=== PATIENT | female | born 1945 | race Caucasian/White ===

== ENCOUNTER 2018-01-29 11:36 | Outpatient (REF) | payer OTHER, SELFPAY ==
[2018-01-29 19:53] LABS: ALT 19 U/L (12-78); Cholesterol 187 mg/dL (50-200); Glucose 80 mg/dL (70-100); HDL Cholesterol 68 mg/dL (40-60); LDL CHOLESTEROL 102 mg/dL (<100); Triglyceride 122 mg/dL (30-150)
== END 2018-01-29 11:56 ==
LOC: NCHCN 11:36
PROVIDERS: PCP Family Medicine; Visit Provider Family Medicine
DX: E78.5 Hyperlipidemia, unspecified (principal)
CPT/HCPCS: 80061; 82947; 83721; 84460

== ENCOUNTER 2018-09-26 00:48 | Outpatient (CLI) | payer OTHER, SELFPAY ==
--- NOTE | 2018-09-26 08:36 | DI.MRI_ITS ---
SYMPTOM/DIAGNOSIS: SUPRACLAVICULAR LYMPHADENOPATHY, R59.0, SPEECH ARTICULATION, F80.0, TIA, G45.9 MRA [place]: The distal internal carotid arteries are unremarkable. No evidence of occlusion, aneurysm or significant stenosis. The anterior cerebral arteries are unremarkable without evidence of occlusion, aneurysm or significant stenosis. The middle cerebral arteries are unremarkable without evidence of occlusion, aneurysm or significant stenosis. The basilar artery is unremarkable without evidence of occlusion, aneurysm or significant stenosis. The posterior cerebral arteries are unremarkable without evidence of occlusion, aneurysm or significant stenosis. IMPRESSION: Negative MRA of the [place]. MRA OF THE NECK: Routine noncontrast examination was performed. This study is limited due to significant patient motion artifact. The common carotid arteries are unremarkable without evidence of occlusion or significant stenosis. The external carotid arteries are unremarkable without evidence of occlusion or significant stenosis. The internal carotid arteries are unremarkable without evidence of occlusion, aneurysm or significant stenosis. The left vertebral artery is dominant. No evidence of aneurysm, occlusion or significant stenosis. The right vertebral artery shows no definite evidence of aneurysm or significant stenosis. IMPRESSION: 1. Limited examination due to patient motion artifact. 2. No definite significant stenosis or occlusion is identified.
== END 2018-09-26 01:08 ==
PROVIDERS: PCP Family Medicine; Visit Provider Family Medicine
DX: R59.0 Localized enlarged lymph nodes (principal); F80.0 Phonological disorder; G45.9 Transient cerebral ischemic attack, unspecified
CPT/HCPCS: 70544; 70547

== ENCOUNTER 2018-10-07 01:09 | Outpatient (CLI) | payer OTHER, SELFPAY ==
[2018-10-07 11:07] LABS: CREATININE 0.64 mg/dL (0.55-1.02)
[2018-10-07] MEDS: Normal Saline Flush 10 ML SYR IVP (11:13)
[2018-10-07] MEDS: Gadoterate meglumine 20 ML VIAL 11 ML IVP (11:14)
--- NOTE | 2018-10-07 11:34 | DI.MRI_ITS ---
SYMPTOM/DIAGNOSIS: SUPRAVASCULAR LYMPHADENOPATHY R59.0. SPEECH ARTICULATION DISORDER F80.0 PRE AND POST CONTRAST MRI OF BRAIN: Routine examination was performed. No priors for comparison. There is prominence of the ventricles and sulci consistent with global cerebral atrophy. There are multiple foci of hyperintense signal in the white matter on the T2 and FLAIR images suggesting small vessel ischemic disease. The diffusion weighted images show no evidence of restricted diffusion. The susceptibility images show multiple round areas of decreased signal predominantly in the subcortical white matter location. Several of these areas correspond to areas of hypointense signal on the T2 weighted images. No intracranial mass, midline shift or mass effect is identified. The ventricles are intact. The basilar cisterns are patent. There is an enlarged empty sella present. Following contrast administration no enhancing lesions are identified. The visualized paranasal sinuses are clear. The orbits and retro-orbital soft tissues are unremarkable. IMPRESSION: 1. Multiple foci of decreased signal on the susceptibility images. Primary diagnostic concern is for cerebral amyloid disease. Trauma and metastases are considered less likely. 2. No evidence of an acute infarct or intracranial mass 3. Cerebral atrophy and small vessel ischemic disease.
== END 2018-10-07 01:29 ==
PROVIDERS: PCP Family Medicine; Visit Provider Family Medicine
DX: R59.0 Localized enlarged lymph nodes (principal); F80.0 Phonological disorder; G93.89 Other specified disorders of brain
CPT/HCPCS: 70553; 82565

== ENCOUNTER 2018-10-21 07:03 | Outpatient (CLI) | payer OTHER, SELFPAY ==
[2018-10-23 15:47] LABS: Vitamin K1 0.37 ng/mL (0.10-2.20)
== END 2018-10-21 07:23 ==
PROVIDERS: PCP Family Medicine; Visit Provider Family Medicine
DX: I68.0 Cerebral amyloid angiopathy (principal)
CPT/HCPCS: 36415; 84597

== ENCOUNTER → 2018-10-29 13:25 | Outpatient (BNVA) | payer OTHER, SELFPAY | PROVIDERS: PCP Family Medicine; Referring Provider Family Medicine; Visit Provider Psychiatry & Neurology Neurology | DX: G62.9 Polyneuropathy, unspecified (principal); G43.109 Migraine with aura, not intractable, without status migrainosus; E85.4 Organ-limited amyloidosis; I68.0 Cerebral amyloid angiopathy | CPT/HCPCS: 99205 ==

== ENCOUNTER 2018-12-30 14:42 | Outpatient (CLI) | payer OTHER, SELFPAY ==
[2018-12-30 16:23] LABS: TSH (W/Ref FT4) 0.64 uIU/mL (0.36-3.74); Vitamin B12 733 pg/mL (193-986)
== END 2018-12-30 15:02 ==
PROVIDERS: PCP Family Medicine; Visit Provider Family Medicine
DX: G62.9 Polyneuropathy, unspecified (principal); R63.4 Abnormal weight loss
CPT/HCPCS: 36415; 82607; 84443

== ENCOUNTER → 2021-09-06 13:20 | Outpatient (BNVA) | payer OTHER, SELFPAY | PROVIDERS: PCP Family Medicine; Referring Provider Family Medicine; Visit Provider Psychiatry & Neurology Neurology | DX: R47.01 Aphasia (principal); M54.81 Occipital neuralgia; E85.4 Organ-limited amyloidosis; I68.0 Cerebral amyloid angiopathy | CPT/HCPCS: 99204 ==

== ENCOUNTER → 2021-09-28 12:16 | Outpatient (BNVA) | payer MEDICARE, SELFPAY | PROVIDERS: PCP Family Medicine; Referring Provider Family Medicine; Visit Provider Psychiatry & Neurology Neurology | DX: M54.81 Occipital neuralgia (principal) | CPT/HCPCS: 64405 ==

== ENCOUNTER 2021-10-03 11:06 | Emergency (ER) | payer MEDICARE, SELFPAY ==
[2021-10-03 11:20] VITALS: BP 106/78; PULSE 84; RESP 20; TEMP 37.2; O2SAT 97
[2021-10-03 13:43] VITALS: BP 126/85; PULSE 70; O2SAT 97
--- NOTE | 2021-10-03 13:45 | DI.CT_ITS ---
Exam(s) CT HEAD - STROKE PROTOCOL EXAM: CT HEAD - STROKE PROTOCOL CLINICAL HISTORY: altered gait, difficulty with word finding. TECHNIQUE: Imaging Protocol: Axial computed tomography images with coronal and sagittal reformatted images were created and reviewed FINDINGS: Ventricles and Extra axial spaces: Normal in size and morphology for the patient's age. Hemorrhage: None. Cerebral parenchyma: Moderate atrophy. Moderate to severe white matter changes consistent with sma ll vessel disease. Midline shift: None. Brainstem/Cerebellum: Normal. Calvarium: Normal. Visualized Paranasal sinuses/Mastoids: Clear. Partially empty sella. IMPRESSION: Atrophy and white matter changes consistent with microvascular disease. No acute abnormality. RADIATION DOSE DELIVERED: 778.34mGy.cm Total DLP 778.34mGy.cm Total DLP DATA REPOSITORY: All CT scans at this facility are submitted to the National Radiology Data Registry (NRDR) Dose Index Registry (DIR) with the [employer] (A[employer]). RADIATION OPTIMIZATION: All CT scans at this facility use at least one of these dose optimization te chniques: automated exposure control; mA and/or kV adjustment per patient size (includes targeted exa ms where dose is matched to clinical indication); or iterative reconstruction.
--- NOTE | 2021-10-03 13:45 | RT.EKG_ITS ---
APPROVED REPORT Exam: Resting ECG Reason for Exam: concern for TIA Patient Location: E HR:74 bpm ECG Measurements Heart Rate 74 AXIS VA 126 P -1 QRSd 72 QRS 49 QT 401 T 54 QTc 447 Conclusion Sinus rhythm...normal P axis, V-rate 60- 99 Consider left ventricular hypertrophy...(S V1+R V5/V6) >3.25mV no STEMI I have reviewed and interpreted ECG and agree with software generated interpretation.
--- NOTE | 2021-10-03 13:46 | W.ED.GENAD ---
Discharge Plan Disposition Patient Disposition: AGAINST MEDICAL ADVICE Condition: Serious Discharge Details Clinical Impression: COVID, Pneumonia, Gait disturbance, Word finding difficulty Primary Care Provider: Radha Castillo V ED Provider: Vaishali Roth Home Meds and New Rx's Prescriptions: Continued flax seed oil 1,000 mg PO DAILY simvastatin 10 mg tablet 10 mg PO DAILY tumeric tablet 500 mg PO DAILY diphenhydramine HCl [Benadryl] 25 mg capsule 25 mg PO DAILY PRN acetaminophen [Tylenol Extra Strength] 500 mg tablet 500 mg PO DAILY PRN magnesium oxide 400 mg magnesium capsule 500 mg PO QHS Discharge Instructions Instructions: Viral Syndrome (ED), Pneumonia (ED) Additional Instructions: Your exam for her cough is concerning for pneumonia in the setting of COVID-19. You are outside the treatment window for the COVID-19. In regard to the pneumonia, you are given a dose of doxycycline here today, please continue this as directed. Even if symptoms improve, please take the entire course. This medication can cause irritation in the sunlight so please wear sunscreen and protect her skin is much as possible. As we discussed, I am quite concerned regarding your progressively worsening neurologic symptoms including difficulty with speech as well as problems with your balance. I am concerned that you may be having strokes that are not able to be visualized on today's imaging. I have recommended admission and you are choosing to leave AGAINST MEDICAL ADVICE. As we discussed, the typical treatment regimen we use for people having a stroke will put you at increased risk of bleeding. Your difficulty with gait and balance have me concerned that the risk of this medication outweigh the benefit and you and I have decided to hold off on this. I would like you to follow-up with your primary care soon as possible, please call tomorrow to schedule follow-up appointment. Please continue to quarantine and wear masks to keep others safe as you are currently testing positive have symptoms consistent with COVID. You may return anytime for continued management or further evaluation. Please seek care immediately if you have worsening neurologic deficits, shortness of breath, chest pain or other new/worsening symptoms. Referrals: Radha Castillo MD [Primary Care Provider] - Discharge Data Discharge Date/Time-TO BE ENTERED AT DEPARTURE: 10/03/21 17:50 Medical Decision Making <MORTEZA Romero - Last Filed: 10/18/21 14:02> Patient is a pleasant 76-year-old female, accompanied by significant other, with chief complaints of cough. She reports a constant present for the past 4 months. Denies any fevers or chills. States that it has been increasing and she can have some discomfort in the upper abdomen associated with severe coughing, she says that this is muscular. She denies any chest pain. Denies SOB. Feels that this is just persistent to the point that it finally needed to be evaluated, nothing acutely changed today. She has been vaccinated for COVID 19. Denies GI upset, rhinorrhea, earr pain, sore throat. State cough is keepign her up at night. No known sick contact. While evaluating the patient, I did notice that she has some difficulty with word finding. Her speech is slow and she often stumbles over words. When expressely asked, she states that this is new.She states that this has been progressively increasing over the past 4 months and that approximately 1 week ago she began noting some difficulty with ambulation and balance such that she has to support herself while walking. On exam, wali appears acute ill with the acute change in speech. She is otherwise appearing well and non toxic. She has crackles at the LLL concerning for pneumonia. Her VS are stable. Normal cardiac exam, no LE edema, no SOB or work of breathing. Neuro exam concerning for change in speech but otherwise without acute, focal finding. Will obtain XR to evaluate for possible pneumonia. I am more concerned at this time however, for possible CVA with progressive neurologic deficits over the last several weeks. She is out of the window for any treatment time. Patient does not seem very forthcoming with information. Will also speak with . Her answers seem appropriate, almost like she was not nearly as concerned about speech and balance changes as the persistant cough, so I do not believe that she is confused but will confirm her answers. Low likelihood for COVID with the cough x 4 months but will obtain testing. Will obtain ECG, head CT and labs. She has no SOB, VS are stable, hx and presentation not consistent with PE. She is not having NG, no rash, fever/chill or indication of PSYCHOLOGICAL OPERATIONS SPECIALIST infection at this time. Brianna underwent MRI 2019: IMPRESSION:? 1.? Multiple foci of decreased signal on the susceptibility images.? Primary diagnostic concern is for cerebral amyloid disease. ? Trauma and metastases are considered less likely. 2.? No evidence of an acute infarct or intracranial mass 3.? Cerebral atrophy and small vessel ischemic disease. ECG reviewed by Dr. Roberts. Cocnerning for possible LVH but not acute findings, negative STEMI. Contacted by radiologist. Noncontrast head CT negative. Labs reviewed. Patient is COVID +. She is out of the windo for any treatment options at this time. Labs reviewed, no signficant acute pathology at this time. Hematuria noted, will have her f/u with PCP regarding this. Contacted by patient's office who has been reviewing note generated. They also advised that to them, patient had expressed severe NG as well as black emesis. Patient denied N/V to me. Discussed with patient. She advised that she did have episode of emesis but relates color to just having drank black coffee. She denies nausea now. Denies abdominal pain, change in bowel habits. She reports she did also have severe NG recently but associated it with her typical migraine regimen wearing off, receives injections. Denies NG currently. I remain concerned for CVA, particularly as COVID is a procoagulant state. Will obtain CTA head/neck. While discussing this concern with the patient, she made it very clear that she will not be staying in the hospital. She wants to be able to be d/c'ed to home. Advised htat she and her have discussed this at length and that they will never be hospitalized, they want to be able to of natural causes at home. She is agreeable to further imaging. CTA without acute abnormality. Discussed with patient. In regard to her largest concern, her chronic cough, she has COVID 19 and exam findings to suggest bacterial pneumonia. Will begin her on abx. Advised she needs to quarantine. In regard to her neurologic dysfunction, I do remain concerned for CVA. MRI not available at this time. She is out of the window for intervention and is not willing to be admitted. With her altered balance, increased risk of fall, and possible dark emesis from PCP office, I am hesitant to begin her on any anticoagulation or antiplatelet. Discussed this with the patient, she agrees with this thinking when we discussed risks/benefits at length. I spoke with who confirms story from patient and their wishes to be home even with the patient having risk/concerns for massive CVA which may lead to signficant morbidity or possible mortality. Patient is leaving against medical advise. She is aware of the risks, voices these. She will be with her , is aware that she may return at any time. She will take the abx for pneumonia. Encouraged close f/u with PCP. All of her questions and concerns were addressed. 1650: [place]: Patient disposition prior to my evaluation by my colleague. Patient was not seen by me. <Vaishali Roth NP - Last Filed: 10/03/21 19:18> Patient is a pleasant 76-year-old female, accompanied by significant other, with chief complaints of cough. She reports a constant present for the past 4 months. Denies any fevers or chills. States that expressivity increasing and she can have some discomfort in the upper abdomen associated with severe coughing, she says that this is muscular. She denies any chest pain. Feels that this is just persistent to the point that it finally needed to be evaluated. While evaluating the patient, he did notice that she has some difficulty with word finding. She states that this has been progressively increasing over the past 4 months and that approximately 1 week ago she began noting some difficulty with ambulation and balance such that she has to hold herself up more MRI 2019: IMPRESSION:? 1.? Multiple foci of decreased signal on the susceptibility images.? Primary diagnostic concern is for cerebral amyloid disease. ? Trauma and metastases are considered less likely. 2.? No evidence of an acute infarct or intracranial mass 3.? Cerebral atrophy and small vessel ischemic disease. 1650: [place]: Patient disposition prior to my evaluation by my colleague. Patient was not seen by me. HPI <MORTEZA Romero - Last Filed: 10/18/21 14:02> General Date/Time Provider Initiated Documentation: 10/03/21 13:46. Limitations to Documentation: no limitations. Information obtained by: patient, family and RN notes reviewed. History of Present Illness 76 year old F presents to the emergency department with the chief complaint of cough, described as moderate, with intensity rated at 1 (patient denies any pain). Patient started experiencing this month(s) (4) and it has been constant. No relieving factors improve symptom(s), No exacerbating factors reported . Patient notes cough and headaches (reports chronic migraines, these have wax/waned, none currently); denies confusion, chest pain, diaphoresis, fever/chills, nausea/vomiting, rash, shortness of breath and weakness. Patient did receive the following treatments prior to arrival, none Related Data Home Medications Medication Instructions Recorded Confirmed flax seed oil PO DAILY 10/21/18 09/28/21 simvastatin 10 mg tablet 10 mg PO DAILY 10/21/18 10/03/21 tumeric 500 mg PO DAILY 10/29/18 09/28/21 acetaminophen 500 mg tablet 500 mg PO DAILY PRN 09/06/21 10/03/21 (Tylenol Extra Strength) diphenhydramine HCl 25 mg capsule 25 mg PO DAILY PRN 09/06/21 09/28/21 (Benadryl) magnesium oxide 500 mg PO QHS 09/06/21 10/03/21 Allergies Allergy/AdvReac Type Severity Reaction Status Date / Time codeine Allergy Mild Verified 10/03/21 11:24 General Stated Complaint: GenMedical PRECIOUS: 4 Review of Systems <MORTEZA Romero - Last Filed: 10/18/21 14:02> Constitutional Constitutional: Reports as per HPI, Denies chills, Denies fever(s), Denies frequent falls and Denies weakness Eyes Eyes: Reports as per HPI, Denies blurry vision and Denies change in vision ENT Ears, Nose, Mouth, and Throat: Denies vertigo and Denies neck pain Cardiovascular Cardiovascular: Reports as per HPI, Denies chest pain, Denies lightheadedness, Denies radiating jaw, neck or arm pain, Denies dyspnea and Denies dyspnea on exertion Respiratory Respiratory: Reports as per HPI, Denies chest congestion, Denies dyspnea and Denies dyspnea on exertion Gastrointestinal Gastrointestinal: Reports as per HPI, Denies abdominal pain, Denies change in bowel habits, Denies nausea and Denies vomiting Musculoskeletal Musculoskeletal: Reports as per HPI, Denies back pain, Denies myalgias, Denies muscle cramps, Denies neck pain and Denies numbness Integumentary/Breasts Skin/Breast: Reports as per HPI and Denies rash Neurologic Neurologic: Reports as per HPI, Denies abnormal movements, Denies behavioral changes, Denies confusion, Denies vertigo, Denies frequent falls, Denies localized weakness, Denies numbness, Denies sensory deficit and Denies weakness Psychiatric Psychiatric: Denies behavioral changes and Denies confusion PFSH <MORTEZA Romero - Last Filed: 10/18/21 14:02> All Active Problems (Updated 10/03/21 @ 17:18 by MORTEZA Romero) COVID (Acute) Pneumonia (Acute) Gait disturbance (Acute) Word finding difficulty (Acute) Occipital neuralgia (Acute) Aphasia (Acute) Cerebral amyloid angiopathy (Acute) Ocular migraine (Acute) Medical History (Updated 10/03/21 @ 17:18 by MORTEZA Romero) History of degenerative joint disease History of TIAs Hx of migraines Hyperlipidemia Mild memory disturbance Speech articulation disorder Supraclavicular lymphadenopathy TIA (transient ischemic attack) Varicose veins of both lower extremities Weight loss Surgical History S/P knee surgery S/P nasal surgery S/P tubal ligation Family History Mother Diabetes Uterine cancer Father Heart disease Sister Heart disease Breast cancer Brother Hyperlipidemia Hypertension Heart disease Sister Crohns disease Social History Smoking/Tobacco Use Status: Former Tobacco Use Smoking risk assessment performed?: Yes Alcohol Intake: never Drug use: Never Substance use type: does not use Household members: spouse current occupation: Retired Duration: 45-60 minutes/day Frequency: daily Do you feel safe at home: Yes Do you feel safe in your relationship?: Yes Exam <MORTEZA Romero - Last Filed: 10/18/21 14:02> Const General: cooperative, comfortable, no acute distress, well developed, well groomed and ill appearing acutely (difficulty with speech and off balance with ambulation) Nutritional Appearance: average body habitus and well nourished Orientation: alert, awake and oriented x3 HENMT Head: normal to inspection, no palpable skull fracture, normocephalic and atraumatic Ears: hearing grossly normal bilaterally, external ears normal and TM's normal bilaterally General nose exam: external nose normal Mouth: oral mucosae normal and moist mucous membranes Throat: posterior oropharynx normal Eyes General: appearance normal, both eyes and all related structures Alignment and Position: alignment normal Periorbital: periorbital findings normal Eyelids: eyelids normal Sclera: sclerae normal Cornea: corneas normal Pupils: PERRL EOM: EOM intact bilaterally Neck Neck: normal visual inspection, full ROM, no lymphadenopathy and no meningeal signs Resp Effort & Inspection: normal respiratory effort, able to speak in complete sentences and no respiratory distress Auscultation: crackles on the left in the lower lung allen, no rales, no rhonchi and no wheezes Cardio Rate: regular rate Rhythm: regular rhythm Heart Sounds: S1 normal and S2 normal Back/Spine/Pelvis Cervical Spine: normal cervical lordosis and cervical ROM normal Skin General skin exam: no rashes or lesions noted Neuro General: patient alert, patient awake and patient oriented x3 Cranial Nerves: CN's II-XI intact bilaterally Cognition: normal cognition Speech: speech abnormal (slightly broken, slow, occassional word finding difficulty) Gait: normal gait (will occasionally reach out to wall or support) Motor: muscle tone normal throughout, strength 5/5 throughout, no pronator drift, no movement abnormalities noted and no fasciculations Sensory Exam: no sensory deficits noted Coordination: [id number] test normal, [id number] test normal, Romberg test normal, tandem gait abnormal (needs to hold on to something part way through) and Does not sway with eyes open Extrem General: normal to inspection, capillary refill normal, no pedal edema and no calf tenderness Psych Appearance: grossly normal and well kempt Mental Status: mental status grossly normal Speech and Movement: speech and movement normal Course <MORTEZA Romero - Last Filed: 10/18/21 14:02> Vital Signs Vital signs: Vital Signs Temperature 37.2 C 10/03/21 11:20 Pulse 84 10/03/21 11:20 Respiratory Rate 20 10/03/21 11:20 Blood Pressure 106/78 10/03/21 11:20 Pulse Oximetry 97 10/03/21 11:20 Temperature 37.2 C 10/03/21 11:20 Temperature Source Temporal Artery Scan 10/03/21 11:20 Pulse 70 10/03/21 13:43 Respiratory Rate 20 10/03/21 11:20 Respiratory Effort 10/03/21 11:26 Blood Pressure 126/85 10/03/21 13:43 Blood Pressure Position Sitting 10/03/21 11:20 Pulse Oximetry 97 07/18/22 13:43 Oxygen Delivery Method Room Air 10/03/21 13:43 Oxygen Flow Rate 0 10/03/21 13:43 Pain Level 10 10/03/21 11:20 Sign Out <MORTEZA Romero - Last Filed: 10/18/21 14:02> Sign Out Data: Sign Out Comment: Care transition to Beti Tay NP with a CTA head and neck pending. Patient is COVID-positive, cough x4 weeks. Presented today secondary to the consistency of her symptoms. No shortness of breath or chest pain. However, over the past several weeks patient has had difficulty with word finding and about a week ago began having difficulty with balance. Has had intermittent headaches, history of migraines and feels like these are the same. I am concerned for potential CVA in the setting of hypercoagulable state with COVID-19. CTA pending. Patient stable. She is out of the window for any acute treatments. Is refusing any type of admission or transfer of care. Patient and her , Brent who is in the waiting room, did not wish to have prolongation of life and both agree that they would like to be able to at home. Last updated by Allie Whitehead PA at 10/03/21 16:44
--- NOTE | 2021-10-03 14:00 | DI.RAD_ITS ---
Exam(s) XR PORTABLE CHEST AP EXAM: XR PORTABLE CHEST AP CLINICAL HISTORY: cough x 4 months TECHNIQUE: 2D digital imaging was performed. COMPARISON: CR CHEST 2 VIEWS PA,LAT from 07/17/2016 CR CHEST 2 VIEWS PA,LAT from 08/29/2016 FINDINGS: LUNGS: Hyperinflated but clear. Scarring adjacent to right heart border. Mild fibrotic changes. No pleural abnormality seen. HEART: Normal. AORTA: Normal. BONES: Unremarkable for age. Soft tissues: Unremarkable. IMPRESSION: No acute findings. DATA REPOSITORY: RADIATION DOSE DELIVERED:
[2021-10-03 14:11] LABS: Abs Immature Grans 0.01 10^3/uL (0.0-0.06); Absolute Basophil Count 0.02 10^3/uL (0.0-0.2); Absolute Monocyte Count 0.54 10^3/uL (0.1-0.8); Absolute Neutrophil Count 3.84 10^3/uL (1.2-6.7); Basophils % 0.3; HCT 46.7 % (36.0-46.0); HGB 15.9 g/dL (11.2-15.7); Immature Grans % 0.2; Lymphocytes % 27.8; MCH 29.1 pg (27.0-33.0); MCV 86 fL (80-95); MPV 9.3 fL (8.0-11.0); Monocytes % 8.8; Neutrophils % 62.9; Platelet Count 201 10^3/uL (130-400); RBC 5.46 10^6/uL (3.93-5.22); RDW 13.5 % (11.7-14.6); RDW-SD 42.1 fL; WBC 6.11 10^3/uL (4.4-10.8)
[2021-10-03 14:38] LABS: ALT 27 U/L (14-59); AST 31 U/L (15-37); Albumin 3.9 g/dL (3.4-5.0); Alkaline Phosphatase 55 U/L (46-116); Anion Gap 8.7 mmol/L (3-11); BUN 19 mg/dL (7-18); Bilirubin, Total 0.5 mg/dL (0.2-1.0); CO2 27.3 mmol/L (21.0-32.0); CREATININE 0.9 mg/dL (0.55-1.02); Calcium 8.9 mg/dL (8.5-10.1); Chloride 97 mmol/L (98-107); Glucose 88 mg/dL (74-106); Magnesium 2.3 mg/dL (1.8-2.4); Potassium 4.5 mmol/L (3.5-5.1); Sodium 133 mmol/L (136-145); Total Protein 7.8 g/dL (6.4-8.2); Troponin I < 50 ng/L (<or=60)
[2021-10-03 14:47] LABS: Bilirubin Negative (Negative); Blood Small (Negative); Clarity Clear (Clear); Glucose Negative (Negative); Ketones Negative (Negative); Leukocyte Esterase Negative (Negative); Nitrite Negative (Negative); Urobilinogen 0.2 EU/dL (Up TO 0.2); pH 5.5 (5-8)
[2021-10-03 14:53] LABS: Bacteria Negative HPF (Negative); C & S Indicated? No; Casts Negative LPF (Negative); Crystals Negative HPF (Negative); Epithelial Cells Few HPF (Negative); Mucus Negative (Negative); WBC Negative HPF (0-5)
--- NOTE | 2021-10-03 15:00 | DI.CT_ITS ---
Exam(s) CT BRAIN NECK CTA EXAM: CT BRAIN NECK CTA CLINICAL HISTORY: altered speech. TECHNIQUE: Imaging Protocol: Axial CT angiography was performed with multi-slice acquisition and mu lti-planar and 3D reconstructions. CONTRAST MATERIAL: Intravenous: Omnipaque 350 Contrast volume:85 ml FINDINGS: CT Head W/O and W contrast: Ventricles and Extra axial spaces: Normal in size and morphology for the patient's age. Hemorrhage: None. Cerebral parenchyma: Atrophy. Midline shift: None. Brainstem/Cerebellum: Normal. Calvarium: Normal. Visualized Paranasal sinuses/Mastoids: Clear. Soft Tissues: Unremarkable. Enhancement: Normal. CTA Brain W: Internal Carotid Arteries: Petrous: Normal. Cavernous: Normal. Cerebral: Normal. Middle Cerebral Arteries: Right: No aneurysm, occlusion or significant stenosis. Left: No aneurysm, occlusion or significant stenosis. Anterior Cerebral Arteries: Right: No aneurysm, occlusion or significant stenosis. Left: No aneurysm, occlusion or significant stenosis. Posterior cerebral Arteries: Right: No aneurysm, occlusion or significant stenosis. Left: No aneurysm, occlusion or significant stenosis. Vertebral Arteries: Right: No aneurysm, occlusion or significant stenosis. Left: No aneurysm, occlusion or significant stenosis. Basilar Artery: No aneurysm, occlusion or significant stenosis. CTA Neck W: Common Carotid: Right: No aneurysm, occlusion or significant stenosis. Left: No aneurysm, occlusion or significant stenosis. External Carotid: Right: No aneurysm, occlusion or significant stenosis. Left: No aneurysm, occlusion or significant stenosis. Internal Carotid: Right: No aneurysm, occlusion or significant stenosis. Left: No aneurysm, occlusion or significant stenosis. Vertebral Artery: Right: No aneurysm, occlusion or significant stenosis. Left: Dominant. No aneurysm, occlusion or significant stenosis. Lung Apices: Normal. Bones: Degenerative changes in the cervical spine. Soft Tissues: Normal. IMPRESSION: 1. Normal CTA examination of the [place] of [place]. 2. Atrophy, otherwise unremarkable CT Head. 3. Normal CTA examination of the neck. Results of this exam have been verbally communicated with emergency department provider. RADIATION DOSE DELIVERED: 1,169.52mGy.cm Total DLP DATA REPOSITORY: All CT scans at this facility are submitted to the National Radiology Data Registry (NRDR) Dose Index Registry (DIR) with the [employer] (ACR). RADIATION OPTIMIZATION: All CT scans at this facility use at least one of these dose optimization te chniques: automated exposure control; mA and/or kV adjustment per patient size (includes targeted exa ms where dose is matched to clinical indication); or iterative reconstruction.
[2021-10-03 15:29] LABS: Influenza A PCR Negative (Negative); Influenza B PCR Negative (Negative); RSV PCR Negative (Negative)
[2021-10-03 15:30] LABS: COVID-19 PCR Positive (Negative)
[2021-10-03] MEDS: Omnipaque 350 MG/ML 100 ML BTL 85 ML IJ (16:33)
[2021-10-03] MEDS: Normal Saline Flush 10 ML SYR IVP (16:34)
[2021-10-03] MEDS: Doxycycline Hyclate 100 MG CAP PO (17:32)
== END 2021-10-03 17:50 | disposition left against medical advice (07) ==
PROVIDERS: Physician Assistant; Emergency Provider Registered Nurse Emergency; PCP Family Medicine
DX: U07.1 COVID-19 (principal); J18.9 Pneumonia, unspecified organism; R26.89 Other abnormalities of gait and mobility; R47.01 Aphasia; R05.1 Acute cough; Z53.29 Procedure and treatment not carried out because of patient's decision for other reasons
CPT/HCPCS: 36415; 70496; 70498; 80053; 87637; 93005; 99285; 70450; 71045; 81003; 81015; 83735; 84443; 84484; 85025; 93010; J3490

== ENCOUNTER 2022-08-19 14:40 | Outpatient (CLI) | payer MEDICARE, SELFPAY ==
--- NOTE | 2022-08-19 | DI.RAD_ITS ---
Exam(s) XR KNEE LT 3V AP,LAT,KENDALL EXAM: XR KNEE LT 3V AP,LAT,KENDALL CLINICAL HISTORY: left knee pain. TECHNIQUE: 2D digital imaging was performed of the left knee. Three images were obtained. AP, late ral and PA tunnel views were obtained. COMPARISON: No exams were available for comparison FINDINGS: BONES: No acute fracture is present. No bony destructive lesion is seen. JOINTS: The knee is normally aligned. There is a large joint effusion. There is an ovoid density in the suprapatellar region which may represent a loose body. Degenerative changes are present with per iarticular spurring predominantly involving the lateral femoral tibial joint and the patellofemoral j oint. SOFT TISSUE: There is soft tissue swelling in the suprapatellar region. IMPRESSION: 1. No acute fracture or dislocation. 2. Large joint effusion. 3. Degenerative changes of the left knee. DATA REPOSITORY: RADIATION DOSE DELIVERED:
--- NOTE | 2022-08-19 15:47 | DI.VRAD_ITS ---
PROCEDURE INFORMATION: Exam: XR Left Knee Exam date and time: 08/19/2022 3:15 PM Age: 77 years old Clinical indication: Other: Left knee pain TECHNIQUE: Imaging protocol: Radiologic exam of the left knee. Views: 3 views. COMPARISON: No relevant prior studies available. FINDINGS: Bones/joints: No acute fracture or dislocation. Large joint effusion containing a 7 mm ovoid calcified density. Mild tricompartmental osteophytosis. Soft tissues: Peripatellar swelling. IMPRESSION: 1. Large joint effusion. 2. Mild osteoarthritis. Dictated and Authenticated by: Chris Hicks MD. Ordering:ELEONORA Montilla MD
== END 2022-08-19 15:00 ==
LOC: DI 14:44
PROVIDERS: PCP Family Medicine; Visit Provider Physician Assistant
DX: M25.462 Effusion, left knee (principal); M17.12 Unilateral primary osteoarthritis, left knee
CPT/HCPCS: 73562

== ENCOUNTER 2022-12-15 13:31 | Outpatient (REF) | payer MEDICARE, SELFPAY ==
[2022-12-15 15:00] LABS: Hemoglobin A1C 5.2 % (<5.7)
[2022-12-15 15:30] LABS: ALT 24 U/L (14-59); AST 23 U/L (15-37); Alkaline Phosphatase 67 U/L (46-116); BUN 16 mg/dL (7-18); Bilirubin, Total 0.8 mg/dL (0.2-1.0); CREATININE 0.7 mg/dL (0.55-1.02); Calcium 9.8 mg/dL (8.5-10.1); Chloride 104 mmol/L (98-107); Estimated GFR 89.58 (mL/min/1.73m2); Glucose 88 mg/dL (74-106); Potassium 4.6 mmol/L (3.5-5.1); Sodium 140 mmol/L (136-145); TSH (W/Ref FT4) 0.72 uIU/mL (0.36-3.74); Total Protein 7.5 g/dL (6.4-8.2); Vitamin B12 998 pg/mL (193-986)
== END 2022-12-15 13:32 | disposition home or self-care (01) ==
LOC: NCHCN 13:31
PROVIDERS: PCP Family Medicine; Visit Provider Family Medicine
DX: G45.9 Transient cerebral ischemic attack, unspecified; E78.5 Hyperlipidemia, unspecified; R26.89 Other abnormalities of gait and mobility; R79.89 Other specified abnormal findings of blood chemistry
CPT/HCPCS: 80053; 82607; 83036; 84443

== ENCOUNTER 2023-02-04 07:34 | Inpatient (IN) | payer MEDICARE, SELFPAY ==
[2023-02-04] VITALS (173 sets, daily range): BP systolic 123–212; BP diastolic 54–137; PULSE 0–172; RESP 15–32; TEMP 36.2–36.7; O2SAT 92–100
--- NOTE | 2023-02-04 07:30 | RT.EKG_ITS ---
APPROVED REPORT Exam: Resting ECG Reason for Exam: ams, stroke symptoms Patient Location: E HR:60 bpm ECG Measurements Heart Rate 60 AXIS SD 166 P 44 QRSd 75 QRS 53 QT 446 T 61 QTc 447 Conclusion Sinus rhythm...normal P axis, V-rate 60- 99 Atrial premature complex...SV complex w/ short R-R interval Consider left ventricular hypertrophy...(S V1+R V5/V6) >3.25mV sinus rhythm, normal axis, normal intervals, LVH, non ischemic
--- NOTE | 2023-02-04 07:30 | DI.RAD_ITS ---
Exam(s) XR CHEST 1V IN DI DEPT EXAM: XR CHEST 1V IN DI DEPT CLINICAL HISTORY: ams TECHNIQUE: 2D digital imaging was performed. Portable supine COMPARISON: CR XR PORTABLE CHEST AP from 10/03/2021 FINDINGS: Interstitial changes. Linear scarring left lung base.. No pleural abnormality seen. HEART: Normal size. AORTA: Tortuous. BONES: Unremarkable for age. Soft tissues: Unremarkable. IMPRESSION: No acute findings. DATA REPOSITORY: RADIATION DOSE DELIVERED:
--- NOTE | 2023-02-04 07:30 | DI.CT_ITS ---
Exam(s) CT CERVICAL SPINE WO EXAM: CT CERVICAL SPINE WO CLINICAL HISTORY: ams, fall yesterday. TECHNIQUE: Imaging Protocol: Axial computed tomography images with coronal and sagittal reformatted images were created and reviewed CONTRAST MATERIAL: Noncontrast COMPARISON: CT CT BRAIN NECK CTA from 10/03/2021 FINDINGS: Bones: No fracture or dislocations are seen. The alignment of the cervical spine is normal including the cervicovertebral junction and cervicothoracic junction. Soft Tissues: The soft tissues of the neck are unremarkable. Degenerative disc changes and facet deg enerative changes. No large disk herniations are identified. The visualized portions of the lung api rachel are clear. No pneumothorax is seen. IMPRESSION: Degenerative changes. No acute abnormality. RADIATION DOSE DELIVERED: Total DLP DATA REPOSITORY: All CT scans at this facility are submitted to the National Radiology Data Registry (NRDR) Dose Index Registry (DIR) with the [employer] (ACR). RADIATION OPTIMIZATION: All CT scans at this facility use at least one of these dose optimization te chniques: automated exposure control; mA and/or kV adjustment per patient size (includes targeted exa ms where dose is matched to clinical indication); or iterative reconstruction.
--- NOTE | 2023-02-04 07:30 | DI.CT_ITS ---
Exam(s) CT HEAD WO EXAM: CT HEAD WO CLINICAL HISTORY: ams, right sided weakness, aphasia. TECHNIQUE: Imaging Protocol: Axial computed tomography images with coronal and sagittal reformatted images were created and reviewed COMPARISON: CT CT BRAIN NECK CTA from 10/03/[address] HEAD - STROKE PROTOCOL from 10/03/2021 FINDINGS: Ventricles and Extra axial spaces: Effacement of the left lateral ventricle Hemorrhage: Large area of acute hemorrhage in the right frontal temporal region measuring 6 x 3.2 x 4 .3 cm. Mild surrounding edema with effacement of the sulci. Mild [id number] midline shift of jeremias roximately 3 millimeters. Small amount subarachnoid hemorrhage noted in the left sylvian fissure.. Cerebral parenchyma: No evidence of acute infarct or mass. Atrophy. White matter changes of small vessel disease. Midline shift: None. Brainstem/Cerebellum: Normal. Calvarium: Normal. Visualized Paranasal sinuses/Mastoids: Small amount of mucous retention in the left maxillary sinus. Soft Tissues: Unremarkable. IMPRESSION: Acute parenchymal hemorrhage in the left frontal parietal region with left right midline shift 3 mill imeters. Small amount of subarachnoid hemorrhage in sylvian fissure. RADIATION DOSE DELIVERED: Total DLP DATA REPOSITORY: All CT scans at this facility are submitted to the National Radiology Data Registry (NRDR) Dose Index Registry (DIR) with the [employer] (ACR). RADIATION OPTIMIZATION: All CT scans at this facility use at least one of these dose optimization te chniques: automated exposure control; mA and/or kV adjustment per patient size (includes targeted exa ms where dose is matched to clinical indication); or iterative reconstruction.
--- NOTE | 2023-02-04 07:45 | DI.RAD_ITS ---
Exam(s) XR PELVIS AP EXAM: XR PELVIS AP CLINICAL HISTORY: fall. TECHNIQUE: 2D digital imaging was performed. Single AP view. COMPARISON: No exams were available for comparison FINDINGS: BONES: The femoral necks are not optimally profiled. No acute fracture is visible. No bony destruct twin lesion is seen. JOINTS: No dislocation present. No joint space narrowing is present. SI joints and pubic symphysis are unremarkable. SOFT TISSUE: Normal. IMPRESSION: The femoral heads are not well profiled. No fracture is identified. DATA REPOSITORY: RADIATION DOSE DELIVERED:
--- NOTE | 2023-02-04 07:45 | W.ED.GENAD ---
Discharge Plan Disposition Patient Disposition: Transfer-Acute Inpatient Care Specific Acute Inpt Facility: [facility] Condition: Stable Discharge Details Chief Complaint: CVA/TIA Clinical Impression: Acute intracerebral hemorrhage, Hemiparesis Primary Care Provider: Radha Castillo V ED Provider: Aquilino Perez Home Meds and New Rx's Prescriptions: No Action flax seed oil 1,000 mg PO DAILY simvastatin 10 mg tablet 10 mg PO DAILY tumeric tablet 500 mg PO DAILY diphenhydramine HCl [Benadryl] 25 mg capsule 25 mg PO DAILY PRN acetaminophen [Tylenol Extra Strength] 500 mg tablet 500 mg PO DAILY PRN magnesium oxide 400 mg magnesium capsule 500 mg PO QHS fluticasone propionate 50 mcg/actuation spray,suspension 1 spray intranasal DAILY Rx Instructions: administer into each nostril guaifenesin [Mucinex Fast-Max Chest-Congest] 100 mg/5 mL liquid 200 mg PO Q4H PRN cholecalciferol (vitamin D3) 50 mcg (2,000 unit) capsule 50 mcg PO DAILY vitamin K2 100 mcg capsule 100 mcg PO DAILY Medical Decision Making 77-year-old female history of TIAs, presents with altered mental status decreased responsiveness and right-sided weakness, not moving her right upper or lower extremities, minimal movement of left lower extremity, 5 out of 5 strength left upper extremity, cranial nerves intact, left gaze preference, minimal verbal response, patient did have a collapsed yesterday helped her into bed. Fingerstick normal in the field. Lungs clear bilaterally, pelvis stable. No external signs of trauma. Consider CVA versus TIA was also consider seizure with postictal state versus traumatic injury to lower extremities or pelvis was also consider intracerebral hemorrhage. Will assess for metabolic derangement or infectious process as well. Screening labs imaging close reassessment likely admission. In the setting of neurodeficits, patient is outside the window for thrombolytics given onset of symptoms approximately 5 PM last night. NIH scale 13, GCS 12 with high score of 4 verbal score of 2 motor score of 6. 8: 10 evidence of left-sided intracerebral hemorrhage with mild midline shift. Patient is maintaining airway. Following commands. Still awaiting vital signs from presentation. We will keep head of bed at 30 degrees, will optimize blood pressure. Patient is not on any blood thinners. Will discuss goals of care with family as records show patient is DNR/DNI and will contact neurosurgical services at [facility] 9: 05 blood pressure in the 160s, patient currently on nicardipine drip. Maintaining airway tolerating secretions however having some episodes of nausea/gagging, did have episode of bradycardia and hypertension. Although patient is DNR/DNI, family is amenable to surgical intervention if deemed necessary and beneficial. Awaiting callback from neurosurgical team. 10: 55 discussed case with neurosurgery as well as vascular neurology team, from a neurosurgical standpoint given patient's history and presentation plan would be to observe patient, I have discussed further goals of care with family who are amenable to surgical intervention if needed and temporary intubation for such a procedure. From a CODE STATUS standpoint patient is DNR/DNI. Patient will need neuro ICU level care given presentation nicardipine drip and need for close monitoring. Will discuss case further with vascular neurology team for likely transfer to [facility]. 12: 40 patient has been accepted at [facility] neuro critical care team neuro ICU Dr. Kat. HPI General Date/Time Provider Initiated Documentation: 02/04/23 07:37. HPI Narrative: 77-year-old female history of past colorectal cancer, prior TIAs, brought in for altered mental status and right-sided deficits that were noted last night, last seen normal around 5 PM, patient did have a collapse at home witnessed with no definitive trauma was helped into bed by . Fingerstick normal in the field, found to have right-sided deficits not moving right upper or right lower extremities, does have some verbal response however minimal compared to baseline Related Data Home Medications Medication Instructions Recorded Confirmed flax seed oil PO DAILY 10/21/18 08/23/22 simvastatin 10 mg tablet 10 mg PO DAILY 10/21/18 08/23/22 tumeric 500 mg PO DAILY 10/29/18 08/23/22 acetaminophen 500 mg tablet 500 mg PO DAILY PRN 09/06/21 08/23/22 (Tylenol Extra Strength) diphenhydramine HCl 25 mg capsule 25 mg PO DAILY PRN 09/06/21 08/23/22 (Benadryl) magnesium oxide 500 mg PO QHS 09/06/21 08/23/22 cholecalciferol (vitamin D3) 50 50 mcg PO DAILY 01/26/22 08/23/22 mcg (2,000 unit) capsule fluticasone propionate 50 1 spray intranasal DAILY 01/26/22 08/23/22 mcg/actuation nasal spray,suspension guaifenesin 100 mg/5 mL oral 200 mg PO Q4H PRN 01/26/22 08/23/22 liquid (Mucinex Fast-Max Chest Congestion) vitamin K2 100 mcg capsule 100 mcg PO DAILY 01/26/22 08/23/22 Allergies Allergy/AdvReac Type Severity Reaction Status Date / Time codeine Allergy Mild Verified 08/19/22 14:09 General PRECIOUS: 4 Review of Systems Narrative: Review of Systems Constitutional: negative Eyes: negative ENT: negative Cardiovascular: negative Respiratory: negative Gastrointestinal: negative : negative Musculoskeletal: negative Skin: negative Neurologic: AMS Psych: negative PFSH All Active Problems (Updated 02/04/23 @ 12:41 by Aquilino Perez MD) Hemiparesis (Acute) Acute intracerebral hemorrhage (Acute) Positive colorectal cancer screening using Cologuard test (Acute) Hearing deficit (Acute) DNR (do not resuscitate) (Acute) Guaiac positive stools (Acute) COVID (Acute) Occipital neuralgia (Acute) Aphasia (Acute) Cerebral amyloid angiopathy (Acute) Ocular migraine (Acute) Medical History (Updated 02/04/23 @ 12:41 by Aquilino Perez MD) Varicose veins of lower extremity Migraines History of degenerative joint disease History of TIAs Speech articulation disorder Varicose veins of both lower extremities Hx of migraines Hyperlipidemia Weight loss Mild memory disturbance TIA (transient ischemic attack) Supraclavicular lymphadenopathy Surgical History S/P knee surgery S/P nasal surgery S/P tubal ligation Family History Mother Diabetes Uterine cancer Father Heart disease Sister Heart disease Breast cancer Brother Hyperlipidemia Hypertension Heart disease Sister Crohns disease Social History Smoking/Tobacco Use Status: Former Tobacco Use Smoking risk assessment performed?: Yes Alcohol Intake: never Drug use: Never Substance use type: does not use Household members: spouse current occupation: Retired Duration: 45-60 minutes/day Frequency: daily Do you feel safe at home: Yes Do you feel safe in your relationship?: Yes Exam Narrative Exam Narrative: Physical Examination General: Awake, resting comfortably HEENT: normocephalic, atraumatic; PERRL, EOM intact, conjunctiva normal; no nasal discharge; moist mucous membranes, oral and pharyngeal mucosa normal, tolerating secretions Neck: supple, trachea midline; full ROM Chest: normal to inspection Respiratory: normal respiratory effort, speaking in full sentences, clear to auscultation, no wheezing, rales or rhonchi Cardiac: regular rate, regular rhythm, S1S2 intact, no murmurs rubs or gallops GI: abdomen soft, non-tender, non-distended; no palpable mass or hepatosplenomegaly Skin: no lesions, rashes or trauma appreciated Neuro: Minimal verbal response, will respond to commands, cranial nerves intact, left gaze preference, 5 and 5 strength left upper extremity, minimal movement of bilateral lower extremities however is able to move her toes foot and ankle on the left, right lower extremity held in extension, no movement of right upper extremity Extremities: No signs of trauma Psych: Appropriate mood and affect
[2023-02-04] MEDS: Normal Saline - Diluent 50 ML VIAL IJ (07:50)
[2023-02-04 07:52] LABS: Abs Immature Grans 0.03 10^3/uL (0.0-0.06); Absolute Basophil Count 0.04 10^3/uL (0.0-0.2); Absolute Eosinophil Count 0.04 10^3/uL (0.0-0.7); Absolute Lymphocyte Count 2.09 10^3/uL (1.2-3.4); Absolute Monocyte Count 0.73 10^3/uL (0.1-0.8); Absolute Neutrophil Count 7.93 10^3/uL (1.2-6.7); Basophils % 0.4; Eosinophils % 0.4; HGB 15.2 g/dL (11.2-15.7); Immature Grans % 0.3; Lymphocytes % 19.2; MCHC 33.8 % (32.0-36.0); MCV 86 fL (80-95); MPV 8.8 fL (8.0-11.0); Monocytes % 6.7; Platelet Count 231 10^3/uL (130-400); RBC 5.25 10^6/uL (3.93-5.22); RDW 13.2 % (11.7-14.6); RDW-SD 41.2 fL; WBC 10.86 10^3/uL (4.4-10.8)
[2023-02-04] MEDS: Normal Saline Flush 10 ML SYR IJ (07:56)
[2023-02-04 08:08] LABS: PTT Activated 21.8 sec (23.6-32.8); Prothrombin Time 10.5 sec (9.1-11.1)
[2023-02-04 08:19] LABS: ALT 15 U/L (14-59); AST 21 U/L (15-37); Albumin 3.7 g/dL (3.4-5.0); Alkaline Phosphatase 65 U/L (46-116); Anion Gap 9.5 mmol/L (3-11); BUN 11 mg/dL (7-18); Bilirubin, Total 0.7 mg/dL (0.2-1.0); CO2 22.5 mmol/L (21.0-32.0); CREATININE 0.7 mg/dL (0.55-1.02); Calcium 9.5 mg/dL (8.5-10.1); Chloride 103 mmol/L (98-107); Estimated GFR 89.58 (mL/min/1.73m2); Glucose 98 mg/dL (74-106); Potassium 4.3 mmol/L (3.5-5.1); Sodium 135 mmol/L (136-145); Total Protein 7.7 g/dL (6.4-8.2); Troponin I < 50 ng/L (<or=60)
[2023-02-04 08:22] LABS: ETHANOL BLOOD < 3.0 mg/dL (<10)
--- NOTE | 2023-02-04 08:26 | DI.VRAD_ITS ---
Addendum created by Poncho Segovia MD on 02/04/2023 8:34:47 AM EST: THIS REPORT CONTAINS FINDINGS THAT MAY BE CRITICAL TO PATIENT CARE. The findings were verbally communicated via telephone conference with Aquilino Perez at 8:34 AM EST on 02/04/2023. The findings were acknowledged and understood. Initial report created on 02/04/2023 8:26:27 AM EST: PROCEDURE INFORMATION: Exam: CT Head Without Contrast Exam date and time: 02/04/2023 7:57 AM Age: 77 years old Clinical indication: Other: AMS TECHNIQUE: Imaging protocol: Computed tomography of the head without contrast. Radiation optimization: All CT scans at this facility use at least one of these dose optimization techniques: automated exposure control; mA and/or kV adjustment per patient size (includes targeted exams where dose is matched to clinical indication); or iterative reconstruction. COMPARISON: CT BRAIN NECK CTA 10/03/2021 3:50 PM FINDINGS: Brain: Parenchymal hematoma centered within the left external capsule extending into the adjacent narayan radiata measuring 6.0 x 3.2 x 4.3 cm with a volume of approximately 41 cc. Small subarachnoid hemorrhage extending into the left sylvian fissure. Effacement of the adjacent sulci and left lateral ventricle with 3 mm of rightward midline shift. Patchy white matter hypodensities, likely representing chronic microvascular ischemic changes. Enlarged, mostly empty sella. Cerebral ventricles: See Brain finding. Paranasal sinuses: Debris/air-fluid level in the left maxillary sinus. Mastoid air cells: Visualized mastoid air cells are well aerated. Orbital cavities: Tortuosity of the bilateral optic nerves. Fluid along the bilateral optic nerve sheaths. Bones/joints: Unremarkable. No acute fracture. Soft tissues: Unremarkable. IMPRESSION: 1. Parenchymal hematoma centered within the left external capsule extending into the adjacent narayan radiata measuring 6.0 x 3.2 x 4.3 cm with a volume of approximately 41 cc. Small subarachnoid hemorrhage extending into the left sylvian fissure. Effacement of the adjacent sulci and left lateral ventricle with 3 mm of rightward midline shift. 2. Patchy white matter hypodensities, likely representing chronic microvascular ischemic changes. 3. Debris/air-fluid level in the left maxillary sinus. Dictated and Authenticated by: Poncho Segovia MD. Ordering:VELMA Rolle MD
--- NOTE | 2023-02-04 08:31 | DI.VRAD_ITS ---
PROCEDURE INFORMATION: Exam: CT Cervical Spine Without Contrast Exam date and time: 02/04/2023 7:55 AM Age: 77 years old Clinical indication: Other: Fall yesterday, AMS TECHNIQUE: Imaging protocol: Computed tomography of the cervical spine without contrast. Radiation optimization: All CT scans at this facility use at least one of these dose optimization techniques: automated exposure control; mA and/or kV adjustment per patient size (includes targeted exams where dose is matched to clinical indication); or iterative reconstruction. COMPARISON: CT BRAIN NECK CTA 10/03/2021 3:50 PM FINDINGS: Bones/joints: Facet hypertrophy is generally greater on the left within the cervical spine. New Multilevel disc height loss of the lower cervical spine. No fracture. Lungs: Lung apices are normal. Pleural spaces: Biapical pleural thickening. Esophagus: Scattered air in the esophagus, possibly from reflux. Soft tissues: Unremarkable. IMPRESSION: 1. No acute traumatic process of the cervical spine. 2. Cervical spondylosis as above. Dictated and Authenticated by: Poncho Segovia MD. Ordering:VELMA Rolle MD
--- NOTE | 2023-02-04 08:38 | DI.VRAD_ITS ---
Addendum created by Boyd Lance DO on 02/04/2023 9:02:06 AM EST: THIS REPORT CONTAINS FINDINGS THAT MAY BE CRITICAL TO PATIENT CARE. The findings were acknowledged by Aquilino Perez at 9:01 AM EST on 02/04/2023. Initial report created on 02/04/2023 8:38:26 AM EST: PROCEDURE INFORMATION: Exam: XR Chest Exam date and time: 02/04/2023 8:09 AM Age: 77 years old Clinical indication: Other: AMS, fall yesterday TECHNIQUE: Imaging protocol: Radiologic exam of the chest. Views: 1 view. COMPARISON: CR XR PORTABLE CHEST AP 10/03/2021 1:50 PM FINDINGS: Lungs: Right infrahilar opacity, stable when compared to multiple prior examinations and likely representing scarring. There is some subtle streaky airspace opacity in the left lung base as well. Pleural spaces: Unremarkable. No pleural effusion. No pneumothorax. Heart/Mediastinum: Heart size is grossly normal. The mediastinum appears to be slightly widened when compared to prior examinations. The aorta is somewhat tortuous. Bones/joints: No acute bony abnormalities. IMPRESSION: 1. Apparent widening of the mediastinum. This may be artifact from projectional nature of portable exam as well as some superimposed rotation. Correlate clinically. If there is any concern for aortic abnormality, a chest CT is recommended to further evaluate. 2. Subtle streaky airspace opacities in the left lung base. This may represent some atelectasis or scarring, however superimposed infectious process could have a similar appearance. Correlate clinically. Dictated and Authenticated by: Boyd Lance MD. Ordering:P.DISST Ana Rolle MD
--- NOTE | 2023-02-04 08:39 | DI.VRAD_ITS ---
PROCEDURE INFORMATION: Exam: XR Pelvis Exam date and time: 02/04/2023 8:07 AM Age: 77 years old Clinical indication: Other: AMS fall yesterday TECHNIQUE: Imaging protocol: Radiologic exam of the pelvis. Views: 1 or 2 view. COMPARISON: No relevant prior studies available. FINDINGS: Bones/joints: No definite acute fractures, however the femoral necks are not well profiled on this exam. Soft tissues: Unremarkable. IMPRESSION: No definite acute fractures are the femoral necks are not well profiled on this exam. Consider orthogonal plane views if there is concern for proximal femoral fractures. Dictated and Authenticated by: Boyd Lance MD. Ordering:VELMA Rolle MD
[2023-02-04 08:42] LABS: Bilirubin Negative (Negative); Blood Moderate (Negative); Clarity Clear (Clear); Glucose Negative (Negative); Ketones 40 mg/dL (Negative); Leukocyte Esterase Negative (Negative); Nitrite Negative (Negative); Urobilinogen 0.2 mg/dL (Up to 0.2); pH 7.5 (5-8)
[2023-02-04 08:50] LABS: Bacteria Negative HPF (Negative); C & S Indicated? No; Casts Negative LPF (Negative); Crystals Negative HPF (Negative); Epithelial Cells Negative HPF (Negative); Mucus Trace (Negative); Other Cells Rare Transitional (Negative); RBC 20-50 HPF (0-2); WBC 0-2 HPF (0-5)
[2023-02-04] MEDS: niCARdipine 25 MG in Normal Saline 240 ML 50 MG IV (08:50)
[2023-02-04 08:56] LABS: *AMPHETAMINES SCREEN URINE Negative (Negative); *BARBITURATES SCREEN URINE Negative (Negative); *BENZODIAZEPINES SCREEN URINE Negative (Negative); Cannabinoids THC Negative (Negative); Cocaine Screen,Urine Negative (Negative); METHADONE URINE SCREEN Negative (Negative); OPIATES URINE SCREEN Negative (Negative); Tricyclic Antidepressants Negative (Negative)
[2023-02-04] MEDS: Normal Saline 500 ML 1000 ML IV (09:00)
[2023-02-04] MEDS: Ondansetron 4 MG/2 ML VIAL IVP (09:00)
[2023-02-04] MEDS: levETIRAcetam 1,000 MG in Normal Saline 100 ML 400 MG IVPB (09:53)
[2023-02-04 11:09] LABS: Troponin I < 50 ng/L (<or=60)
--- NOTE | 2023-02-04 14:24 | HPE_ITS ---
Date of service: 02/04/23 Time of Service: 14:24 Assessment and Plan Assessment and plan (1) Acute intracerebral hemorrhage: Status: Acute Assessment and plan: Admit to the medical surgical floor on comfort measures. We will continue keppra which was given in the ED for seizure prophylaxis. Will focus on symptom management with plans for discharge home on hospice tomorrow. (2) Hypertensive emergency: Status: Acute Assessment and plan: Cardene gtt to not be continued on comfort measures. (3) Hemiparesis: Status: Acute Assessment and plan: Due to above. As above (4) Cerebral amyloid angiopathy: Status: Chronic Assessment and plan: Probaly contributing to the ICH. As above. (5) Comfort measures only status: Status: Acute Assessment and plan: The family is interested in taking the patient home on hospice tomorrow. I have placed consults for both palliative care and hospice. (6) Discharge planning issues: Status: Acute Assessment and plan: DNR/DNI/comfort measures only. As above (7) DVT prophylaxis: Status: Acute Assessment and plan: Not required in a comfort measures patient. History of Present Illness History of Present Illness Chief Complaint: Fall, R-sided weakness, not speaking since 5 pm yesterday Narrative: Ms Curtis is a 77 year old female with PMHx of prior cerebral hemorrhage due to cerebral amyloid angiopathy, h/o aphasia, migraines, occipital neuralgia, who was at her baseline state of health until attempting to get up from the couch at 5 pm last night and falling down to the ground because her legs gave out, per her . He states that was because one of her sides would not move. She has not spoken since that time. Overnight, the states that the patient was cold but kept throwing her sheets off her. She was brought to the ED this morning for an evaluation and was found to have a L parenchymal hematoma, a small subarachnoid hemorrhage extending into the left sylvian fissure, and evidence of 3 mm of midline shift to the right. The patient was also found to be hypertensive with BPs as high as 212/97. She was started on nicardipine gtt. A transfer to a tertiary care facility was sought for intervention per initial discussion with the family. However, upon further family discussion, the decision was made to place the patient on comfort measures. The family is interested in potentially taking the patient home on hospice tomorrow. Review of Systems Unobtainable due to mental status PFSH All Active Problems (Updated 02/04/23 @ 14:54 by Nancy Schwartz MD) Hypertensive emergency (Acute) DVT prophylaxis (Acute) Discharge planning issues (Acute) Comfort measures only status (Acute) Hemiparesis (Acute) Acute intracerebral hemorrhage (Acute) Positive colorectal cancer screening using Cologuard test (Acute) Hearing deficit (Acute) DNR (do not resuscitate) (Acute) Guaiac positive stools (Acute) COVID (Acute) Occipital neuralgia (Acute) Aphasia (Acute) Cerebral amyloid angiopathy (Chronic) Ocular migraine (Acute) Medical History (Updated 02/04/23 @ 14:54 by Nancy Schwartz MD) Varicose veins of lower extremity Migraines History of degenerative joint disease History of TIAs Speech articulation disorder Varicose veins of both lower extremities Hx of migraines Hyperlipidemia Weight loss Mild memory disturbance TIA (transient ischemic attack) Supraclavicular lymphadenopathy Surgical History S/P knee surgery S/P nasal surgery S/P tubal ligation Family History Mother Diabetes Uterine cancer Father Heart disease Sister Heart disease Breast cancer Brother Hyperlipidemia Hypertension Heart disease Sister Crohns disease Social History Smoking/Tobacco Use Status: Former Tobacco Use Smoking risk assessment performed?: Yes Alcohol Intake: never Drug use: Never Substance use type: does not use Household members: spouse current occupation: Retired Duration: 45-60 minutes/day Frequency: daily Do you feel safe at home: Yes Do you feel safe in your relationship?: Yes Meds Allergies and Home Medications Allergies Allergy/AdvReac Type Severity Reaction Status Date / Time codeine Allergy Mild Verified 08/19/22 14:09 Home Medications Medication Instructions Recorded Confirmed Type flax seed oil PO DAILY 10/21/18 08/23/22 History simvastatin 10 mg tablet 10 mg PO DAILY 10/21/18 02/04/23 History tumeric 500 mg PO DAILY 10/29/18 02/04/23 History magnesium oxide 500 mg PO QHS 09/06/21 02/04/23 History cholecalciferol (vitamin D3) 50 50 mcg PO DAILY 01/26/22 02/04/23 History mcg (2,000 unit) capsule fluticasone propionate 50 1 spray intranasal DAILY 01/26/22 02/04/23 History mcg/actuation nasal spray,suspension vitamin K2 100 mcg capsule 100 mcg PO DAILY 01/26/22 02/04/23 History Exam Narrative Exam Narrative: General: Frail elderly female who is laying in bed with eyes closed, not opening eyes voluntarily, not moving the R side of the body, nonverbal, does squeeze L hand on command Neurological: R hemiparesis, following commands on the L, nonverbal, not tracking. The patient does have a tremulous episode in her LUE while I am in the room, lasting about 20 seconds. Psychiatric: unable to assess due to mental status Skin: visible skin intact HEENT: Atraumatic, normocephalic, pupils pinpoint, not tracking, MMM, not opening mouth for oropharyngeal exam, no submandibular or cervical lymphadenopathy, no goiter or JVD Cardiovascular: RRR, no m/r/g Lungs: Diminished breath sounds B Gastrointestinal: soft, nondistended Genitourinary: deferred Extremities: no edema BLEs. Results Imaging Additional studies: CT head w/o contrast: 1. Parenchymal hematoma centered within the left external capsule extending into the adjacent narayan radiata measuring 6.0 x 3.2 x 4.3 cm with a volume of approximately 41 cc. Small subarachnoid hemorrhage extending into the left sylvian fissure. Effacement of the adjacent sulci and left lateral ventricle with 3 mm of rightward midline shift. 2. Patchy white matter hypodensities, likely representing chronic microvascular ischemic changes. 3. Debris/air-fluid level in the left maxillary sinus. CT C-spine w/o contrast: 1. No acute traumatic process of the cervical spine. 2. Cervical spondylosis as above. CXR: 1. Apparent widening of the mediastinum. This may be artifact from projectional nature of portable exam as well as some superimposed rotation. Correlate clinically. If there is any concern for aortic abnormality, a chest CT is recommended to further evaluate. 2. Subtle streaky airspace opacities in the left lung base. This may represent some atelectasis or scarring, however superimposed infectious process could have a similar appearance. Correlate clinically. XR pelvis: No definite acute fractures are the femoral necks are not well profiled on this exam. Consider orthogonal plane views if there is concern for proximal femoral fractures. Labs 02/04/23 07:40 02/04/23 07:40 Labs: Laboratory Results - last 24 hr 02/04/23 02/04/23 02/04/23 07:40 08:32 10:44 WBC 10.86 H RBC 5.25 H Hgb 15.2 Hct 45.0 MCV 86 MCH 29.0 MCHC 33.8 RDW 13.2 Plt Count 231 MPV 8.8 Immature Gran % 0.3 Neutrophils % 73.0 Lymphocytes % 19.2 Monocytes % 6.7 Eosinophils % 0.4 Basophils % 0.4 Nucleated RBC % 0.0 Absolute Neutrophils 7.93 H Absolute Lymphocytes 2.09 Absolute Monocytes 0.73 Absolute Eosinophils 0.04 Absolute Basophils 0.04 PT 10.5 INR 1.0 APTT 21.8 L Sodium 135 L Potassium 4.3 Chloride 103 Carbon Dioxide 22.5 Anion Gap 9.5 BUN 11 Creatinine 0.7 Est GFR (CKD-EPI 2020) 89.58 Glucose 98 Calcium 9.5 Magnesium 2.0 Total Bilirubin 0.7 AST 21 ALT 15 Alkaline Phosphatase 65 Troponin I < 50 < 50 Total Protein 7.7 Albumin 3.7 TSH 0.90 Urine Color Yellow Urine Clarity Clear Urine pH 7.5 Ur Specific [place] 1.020 Urine Protein Negative Urine Ketones 40 H Urine Blood Moderate H Urine Nitrite Negative Urine Bilirubin Negative Urine Urobilinogen 0.2 Ur Leukocyte Esterase Negative Urine RBC 20-50 H Urine WBC 0-2 Ur Epithelial Cells Negative Urine Crystals Negative Urine Bacteria Negative Urine Casts Negative Urine Mucus Trace Urine Other Rare Transitional Ur Culture Indicated? No Urine Glucose Negative Urine Opiates Screen Negative Urine Methadone Screen Negative Ur Barbiturates Screen Negative Ur Tricyclics Screen Negative Ur Amphetamines Screen Negative U Benzodiazepines Scrn Negative Urine Cocaine Screen Negative Ur THC Screen Negative Ethyl Alcohol < 3.0 Last Vital Signs Temp 36.7 C 02/04/23 08:14 Pulse 78 02/04/23 13:56 Resp 19 02/04/23 13:56 BP 147/83 H 02/04/23 13:56 Pulse Ox 97 02/04/23 13:56 Time Spent Time spent with Patient: 40-54 minutes Time was spent: preparing to see the patient(eg.review tests), obtaining and/or reviewing separately otained hiistory, ordering medications,tests, procedures, referring, communicating with other health home health caregiver, indepentently interpreting results, counseling the patient and care coordination
[2023-02-04] MEDS: LORazepam 2 MG/ML VIAL 0.5 MG IV/SC ×2 (17:35→23:31)
[2023-02-04] MEDS: levETIRAcetam 500 MG in Normal Saline 100 ML 400 MG IVPB (20:59)
[2023-02-05] MEDS: LORazepam 2 MG/ML VIAL 0.5 MG IV/SC ×3 (09:59→16:27)
[2023-02-05] MEDS: levETIRAcetam 500 MG in Normal Saline 100 ML 400 MG IVPB ×2 (10:21→21:23)
--- NOTE | 2023-02-05 17:07 | W.PM.PROGNOT ---
Date of Service Date of service: 02/05/23 Time of Service: 17:07 Assessment and Plan Assessment and plan (1) Acute intracerebral hemorrhage: Status: Acute Assessment and plan: Admitted to the medical surgical floor on comfort measures. We will continue keppra which was given in the ED for seizure prophylaxis. Will focus on symptom management with plans for discharge home on hospice tomorrow. (2) Comfort measures only status: Status: Acute Assessment and plan: The family is interested in taking the patient home on hospice tomorrow. seen by Karely Love APRN, palliative care and hospice. will continue to follow at home (3) Discharge planning issues: Status: Acute Assessment and plan: DNR/DNI/comfort measures only. home tomorrow on hospice discussed with DR Schwartz Subjective Subjective Interval history since last seen: Patient is unresponsive and resting quietly family is at bedside Exam Narrative Exam Narrative: Elderly female of stated age resting quietly in bed unresponsive head is atraumatic skin is pink warm dry well-perfused respirations are even and unlabored there is no audible wheezing or breath sounds noted. Objective Last Vital Signs Temp 36.2 C L 02/04/23 15:27 Pulse 92 H 02/04/23 15:27 Resp 18 02/04/23 15:27 BP 163/96 H 02/04/23 15:27 Pulse Ox 98 02/04/23 15:27 Time Spent with Patient Time Spent with Patient: 25-34 minutes Time was spent: preparing to see the patient(eg.review tests), ordering medications,tests, procedures, referring, communicating with other health manager intensive care unit, indepentently interpreting results and care coordination
--- NOTE | 2023-02-05 17:57 | PDOC.CMIN ---
Date of service: 02/05/23 Time of Service: 17:57 Care Management Initial Assmt Initial Assessment REASON FOR HOSPITALIZATION:: intracerebral bleed PREVIOUS FUNCTIONAL STATUS/SOCIAL/FAMILY SUPPORTS:: Taya lives in a [place] in [facility] with her Brent. Between them they have 4 children. Taya has had health issues for about the past 10 years but has been fairly independent until recently. Her speech has become less clear and her cognition has declined. This weekend she suffered an intracerebral bleed and is now on comfort care and is unresponsive. CURRENT FUNCTIONAL STATUS:: Taya was lying in bed when CM met with her family. She was unable to participate in the conversation. She has suffered an intracranial bleed and is not responding. Her family had many questions about comfort care and hospice and end of life care. CM answered their questions and requested a hospice consult. Tavia from hospice met with the family this afternoon and formulated a plan for her to be discharged home and admitted to hospice tomorrow. A hospital bed and overbed table have been ordered from [employer] [facility]. ADVANCE DIRECTIVES:: [facility] on file Has patient been provided with info about the portal/API?: Yes Did the patient sign up for the portal?: Yes CODE STATUS:: DNR/DNI INSURANCE COVERAGE / FINANCIAL ISSUES:: [facility] Medicare Replacement CURRENT HOME/COMMUNITY SERVICES/EQUIPMENT:: will discharge home on hospice PRIMARY CARE PHYSICIAN:: Radha Castillo PATIENT/FAMILY EDUCATION NEEDS:: expectations, end of life care TRANSPORTATION:: via EMS coordinated by CM PLAN:: Taya will be discharged home tomorrow and admitted to hospice same day. A hospital bed and overbed table have been ordered. She will follow up with her PCP and hospice team. Taya has a large family and several family members have committed to supporting Brittney at home. They plan to make a coverage schedule to make the process easier for everyone. PFSH All Active Problems (Updated 02/04/23 @ 14:54 by Nancy Schwartz MD) Hypertensive emergency (Acute) DVT prophylaxis (Acute) Discharge planning issues (Acute) Comfort measures only status (Acute) Hemiparesis (Acute) Acute intracerebral hemorrhage (Acute) Positive colorectal cancer screening using Cologuard test (Acute) Hearing deficit (Acute) DNR (do not resuscitate) (Acute) Guaiac positive stools (Acute) COVID (Acute) Occipital neuralgia (Acute) Aphasia (Acute) Cerebral amyloid angiopathy (Chronic) Ocular migraine (Acute) Medical History (Updated 02/04/23 @ 14:54 by Nancy Schwartz MD) Varicose veins of lower extremity Migraines History of degenerative joint disease History of TIAs Speech articulation disorder Varicose veins of both lower extremities Hx of migraines Hyperlipidemia Weight loss Mild memory disturbance TIA (transient ischemic attack) Supraclavicular lymphadenopathy Surgical History S/P knee surgery S/P nasal surgery S/P tubal ligation Family History Mother Diabetes Uterine cancer Father Heart disease Sister Heart disease Breast cancer Brother Hyperlipidemia Hypertension Heart disease Sister Crohns disease Social History Smoking/Tobacco Use Status: Former Tobacco Use Smoking risk assessment performed?: Yes Alcohol Intake: never Drug use: Never Substance use type: does not use Household members: spouse Housing: house current occupation: Retired Duration: 45-60 minutes/day Frequency: daily Do you feel safe at home: Yes Do you feel safe in your relationship?: Yes
[2023-02-05] MEDS: Scopolamine 1 MG/3 DAYS PATCH TD (18:12)
[2023-02-06 07:12] VITALS: PULSE 80; RESP 26
[2023-02-06] MEDS: Normal Saline Flush 10 ML SYR IVP ×7 (07:27→14:19)
[2023-02-06] MEDS: Normal Saline 500 ML 100 ML IV (08:05)
[2023-02-06] MEDS: levETIRAcetam 500 MG in Normal Saline 100 ML 400 MG IVPB (08:06)
--- NOTE | 2023-02-06 08:16 | PDOC.CMDIS ---
Date of service: 02/06/23 Time of Service: 08:16 LACE Index Scoring Tool Questions: Length of Stay (in days): 2 Was the patient admitted via the E.D.?: Yes Care Management Discharge Plan Reason for Hospitalization: intracerebral bleed Discharge Plan: Taya will be discharged home and admitted to hospice same day. A hospital bed and overbed table have been ordered and arrived. She will follow up with her PCP and hospice team. Taya has a large family and several family members have committed to supporting Brittney at home. They plan to make a coverage schedule to make the process easier for everyone. Taya will transport via EMS coordinated by CM. Patient/Family Education Needs: Review discharge instructions, discuss Ask Me Three.
--- NOTE | 2023-02-06 09:10 | NUR.NOTE ---
Nursing Note: At approximately 0908 on 02/06/23, this RN returned a call from Ranjit Quezada (pt.'s daughter in law; on HIPAA). RN updated pt.'s daughter in law regarding how the pt.'s night had gone, how the pt.'s morning was going, and that the pt. had been medicated with morphine per the MAR to help with pt.'s tachynpnea, restlessness, and slight furrowing of her brow, and that upon reassessment by the RN, the pt. appeared much more comfortable. RN also updated the pt.'s daughter in law regarding the fact that a few other family members were at the pt.'s bedside, holding the pt.'s hands and talking to her, which appeared to be soothing to the pt. Pt.'s daughter in law verbalized understanding and stated that she was already on her way to the hospital. Pt.'s daughter in law then thanked the RN for calling her back. Phone call then ended.
[2023-02-06] MEDS: LORazepam 2 MG/ML VIAL 0.5 MG IV/SC ×3 (11:16→14:19)
--- NOTE | 2023-02-06 13:47 | DSE_ITS ---
Date of service: 02/06/23 Time of Service: 13:47 DS: Diagnosis Discharge Diagnosis (1) Acute intracerebral hemorrhage: Status: Acute (2) Comfort measures only status: Status: Acute Discharge Plan Disposition Specific Acute Inpt Facility: [facility] Condition: Serious Condition: Poor Discharge Details Reason For Visit: acute intracerebral hemorrhage,comfort measures on Admit Date/Time: 02/04/23 14:23 Admit Provider: Nancy Schwartz Attending Provider: Nancy Schwartz Primary Care Provider: Radha Castillo V Hospital Course Hospital Course: Per admission H&P, Ms Curtis is a 77 year old female with PMHx of prior cerebral hemorrhage due to cerebral amyloid angiopathy, h/o aphasia, migraines, occipital neuralgia, who was at her baseline state of health until attempting to get up from the couch the night before presentation. She reportedly fell down to the ground because her legs gave out, per her . She had not spoken since that time. Overnight, he states that the patient was cold but kept throwing her sheets off her. She was ultimately brought to the ED in the morning for an evaluation and was found to have a L parenchymal hematoma, a small subarachnoid hemorrhage extending into the left sylvian fissure, and evidence of 3 mm of midline shift to the right. She was also found to be hypertensive with BPs as high as 212/97 and started on nicardipine gtt. A transfer to a tertiary care facility was sought for intervention per initial discussion with the family. But upon further family discussion, the decision was made to place the patient on comfort measures. She was admitted to the hospitalist services for symptom management comfort measures and discharge planning. Case management was following and palliative/hospice consultation placed. Plan is to discharge to home under hospice services DME has been secured and she has been changed from morphine infusion to Dilaudid CADD pump for discharge to home. Her medications will be overseen by hospice services who is set to admit her upon discharge and arrival to home. She is being discharged to home by ambulance service that she has remained obtunded. There has been no signs of discomfort family has remained at bedside. Discharge discussed with Dr. Schwartz Home Meds and New Rx's Prescriptions: No Action morphine concentrate 100 mg/5 mL (20 mg/mL) solution See Rx Instructions PO Q4H MDD 120 mg PRN (Reason: pain or dyspnea) Qty: 30 0RF Rx Instructions: 0.25-1.0 ml orally every 4 hours PRN; HOSPICE lorazepam 1 mg tablet 1 mg PO Q4H PRN (Reason: anxiety) Qty: 10 5RF Rx Instructions: 0.5-1.0 tab; HOSPICE morphine 2 mg/mL syringe 0.5 - 2 mg subcut Q1H MDD 30 mg Qty: 50 0RF Rx Instructions: Hospice CADD basal: 0.5-2 mg/hr bolus: 0.5-1 mg q 15m PRN Discharge Instructions Instructions: and Dying (DC), Hospice Care (GEN) Additional Instructions: all meds and orders to be overseen by hospice care Referrals: Karely Love NP [NURSE PRACTITIONER] - Activity:: not taking po, unresponsi Equipment/Supplies:: hospice equipment, bed Diet:: As Tolerated DS: Summary Time Spent with Patient providing and/or coordinating discharge services: Greater than 30 minutes Status at Discharge Functional status at discharge: bed bound Overall status at discharge: patient is not back to baseline Mental Status: other (Obtunded) Speech and Movement: other Mood: other (Obtunded) Affect: other Exam Narrative Exam Narrative: Elderly female of stated age resting quietly in bed skin is pink warm dry well- perfused head is atraumatic respirations are even and unlabored Psych Mental Status: other (Obtunded) Speech and Movement: other Mood: other (Obtunded) Affect: other DS: Data Vitals/I&O Vitals and I&O: Vital Signs Temperature 36.2 C L 02/04/23 15:27 Temperature Source Oral 02/04/23 08:14 Pulse 80 02/06/23 07:12 Pulse Rhythm Regular 02/05/23 22:52 Pulse 83 02/04/23 15:10 Respiratory Rate 26 H 02/06/23 07:12 Respiratory Effort Normal, Non-Labored 02/05/23 22:52 Respiratory Depth Normal 02/05/23 22:52 Respiratory Pattern Normal 02/05/23 22:52 Blood Pressure 163/96 H 02/04/23 15:27 Blood Pressure Mean 109 02/04/23 15:10 Blood Pressure Position Sitting 02/04/23 08:14 Pulse Oximetry 98 02/04/23 15:27 Respiratory End-tidal CO2 12 02/04/23 15:10 Oxygen Delivery Method Room Air 02/04/23 15:27 Oxygen Flow Rate 0 02/04/23 15:27 Comment Pt. is slightly tachypneic. Pt. is also slightly restless. Pt. to be medicated at the next available time per the MAR. 02/06/23 07:12 Intake & Output 02/05/23 02/06/23 02/06/23 23:59 11:59 23:59 Intake Total 105 / 210 156.667 / 156.667 Output Total 300 / 300 150 / 300 150 / 300 Balance -195 / -90 6.667 / -143.333 -150 / -143.333 Intake: IV 105 / 210 156.667 / 156.667 Output: Urine 300 / 300 150 / 300 150 / 300 Other: Urine Color Dark Ashley Light Ashley Dark Ashley Urine Appearance Clear Clear Urine Odor Normal Voiding Methods Indwelling Catheter PFSH All Active Problems (Updated 02/06/23 @ 10:01 by Symone Metzger MD) Hospice care (Acute) Hypertensive emergency (Acute) DVT prophylaxis (Acute) Discharge planning issues (Acute) Comfort measures only status (Acute) Hemiparesis (Acute) Acute intracerebral hemorrhage (Acute) Positive colorectal cancer screening using Cologuard test (Acute) Hearing deficit (Acute) DNR (do not resuscitate) (Acute) Guaiac positive stools (Acute) COVID (Acute) Occipital neuralgia (Acute) Aphasia (Acute) Cerebral amyloid angiopathy (Chronic) Ocular migraine (Acute) Medical History (Updated 02/06/23 @ 10:01 by Symone Metzger MD) Varicose veins of lower extremity Migraines History of degenerative joint disease History of TIAs Speech articulation disorder Varicose veins of both lower extremities Hx of migraines Hyperlipidemia Weight loss Mild memory disturbance TIA (transient ischemic attack) Supraclavicular lymphadenopathy Surgical History S/P knee surgery S/P nasal surgery S/P tubal ligation Family History Mother Diabetes Uterine cancer Father Heart disease Sister Heart disease Breast cancer Brother Hyperlipidemia Hypertension Heart disease Sister Crohns disease Social History Smoking/Tobacco Use Status: Former Tobacco Use Smoking risk assessment performed?: Yes Alcohol Intake: never Drug use: Never Substance use type: does not use Household members: spouse Housing: house current occupation: Retired Duration: 45-60 minutes/day Frequency: daily Do you feel safe at home: Yes Do you feel safe in your relationship?: Yes Time Spent with Patient Time Spent with Patient: 45-69 minutes Time was spent: ordering medications,tests, procedures, referring, communicating with other health assurance services manager health care and care coordination
--- NOTE | 2023-02-06 13:51 | NUR.NOTE ---
Nursing Note: At approximately 1340 on 02/06/23, this RN entered the pt.'s room and noted that the hospice and palliative care nurse was in the room speaking with the pt.'s daughter in law and finishing setting up the pt.'s CADD pump. Per hospice nurse, CADD pump needle was placed in the subcutaneous fat of the pt.'s left posterior upper arm. Dressing appears clean, dry, intact, with no drainage noted. Pt. to be discharged home on hospice this afternoon per MD order.
--- NOTE | 2023-02-06 14:33 | CHAPLAIN ---
Taya is being discharged today to go home and be admitted to hospice. She is unresponsive. Her daughter in law was with her when I visited. She said she believes Taya is comfortable but beginning to figit some because she knows she's going home. Taya's , Brent is home getting the hospital bed and other equipment in place for when Taya arrives home this afternoon. I suggested to Taya's daughter in law, that they accept help from [employer], Rev. Julia Mojica.
== END 2023-02-06 14:33 | disposition hospice, home (50) | DRG 65 ==
LOC: ER 14:12 → MS 15:26
PROVIDERS: Admitting Provider Internal Medicine; Emergency Provider Emergency Medicine; PCP Family Medicine; Visit Provider Internal Medicine
DX: I61.9 Nontraumatic intracerebral hemorrhage, unspecified (principal); G81.91 Hemiplegia, unspecified affecting right dominant side; I16.1 Hypertensive emergency; I68.0 Cerebral amyloid angiopathy; Z51.5 Encounter for palliative care; Z66 Do not resuscitate; G43.909 Migraine, unspecified, not intractable, without status migrainosus; M54.81 Occipital neuralgia; W08.XXXA Fall from other furniture, initial encounter; R19.5 Other fecal abnormalities; E78.5 Hyperlipidemia, unspecified; I83.93 Asymptomatic varicose veins of bilateral lower extremities; R63.4 Abnormal weight loss; R47.9 Unspecified speech disturbances; F06.8 Other specified mental disorders due to known physiological condition; Z68.23 Body mass index [BMI] 23.0-23.9, adult
CPT/HCPCS: 00123; 36415; 36416; 51702; 80053; 80307; 82962; 93005; 96365; 96368; 96375; 99285; 70450; 71045; 72125; 72170; 80320; 81003; 81015; 83735; 84443; 84484; 85025; 85610; 85730; 93010; 99223; 99232; 99239; J1953; J2060; J2405; J3490